=== PATIENT | male | born 1945 | race Caucasian/White ===

== ENCOUNTER 2016-07-20 17:42 | Observation (INO) | payer MEDICARE, OTHER ==
[~2016-07-20] VITALS: Ht 177.8 cm; Wt 118.1 kg
[~2016-07-20 17:42] MED LIST: LEVO.025 PO; NAPR500 PO; ONDA1TAB16 PO; PERC5TAB12 PO; RAMI10CA35 PO
[2016-07-20 17:45] VITALS: BP 134/78; PULSE 108; RESP 24; TEMP 98; O2SAT 98
[2016-07-20 18:28] VITALS: BP 123/86; O2SAT 90
[2016-07-20] MEDS ORDERED: SODIUM CHLORIDE 0.9% FLUSH 10 ML FLUSH IVF PRN (18:30)
[2016-07-20] MEDS ORDERED: LEVO150T7 PO (18:31)
[2016-07-20] MEDS ORDERED: METF500T PO (18:31)
[2016-07-20] MEDS ORDERED: FURO20TA PO (18:31)
[2016-07-20] MEDS ORDERED: XARE20TA PO (18:31)
[2016-07-20] MEDS ORDERED: POTA-163 PO (18:31)
[2016-07-20] MEDS ORDERED: AMIO200T PO (18:31)
[2016-07-20] MEDS ORDERED: AMLO5TAB2 PO (18:31)
[2016-07-20 18:35] LABS: AUTOMATED NEUTROPHIL # 10.3 TH/MM3 (1.8-7.7); BASOPHIL # 0.1 TH/MM3 (0-0.2); BASOPHIL % 0.6 % (0.0-2.0); EOSINOPHIL % 0.2 % (0.0-4.0); HEMATOCRIT 43.8 % (39.0-51.0); HEMO FLAGS DIFF FINAL; LYMPH % 19.8 % (9.0-44.0); LYMPHOCYTE # 2.9 TH/MM3 (1.0-4.8); MEAN CELL VOLUME 91.7 FL (80.0-100.0); MEAN CORPUSCULAR HEMOGLOBIN 30.2 PG (27.0-34.0); MONO % 7.5 % (0.0-8.0); NEUT % 71.9 % (16.0-70.0); PLATELET COUNT 154 TH/MM3 (150-450); RED BLOOD COUNT 4.77 MIL/MM3 (4.50-5.90); RED CELL DISTRIBUTION WIDTH 13.8 % (11.6-17.2); WHITE BLOOD COUNT 14.4 TH/MM3 (4.0-11.0)
--- NOTE | 2016-07-20 18:38 | PD ---
HPI Chief Complaint: Chest Pain Time Seen by Provider: 18:16 Travel History International Travel<30 days: No Contact w/Intl Traveler<30days: No Traveled to known affect area: No History of Present Illness HPI The patient is a 71-year-old male who presents to the emergency department for chest pain and mild shortness of breath. The patient states he has a history of atrial fibrillation and has been taking Xarelto for one month' s duration. The patient underwent cardiac ablation yesterday at [facility] by his speech language pathologist assistant, Dr. Vieyra. The patient states he was feeling well this morning, however, several hours ago developed some chest pain. The chest pain is substernal, pressure, nonradiating, associated with mild shortness of breath. The pain is worse with inspiration. He denies any nausea, vomiting, or abdominal pain. The patient states his pain started approximately 30 minutes after taken amiodarone. The patient did not call his pump attendant prior to arrival. Symptoms are moderate, there are no known alleviating or exacerbating factors. 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, ABLATION ) Social History Alcohol Use: Yes (OCCAS) Tobacco Use: No Substance Use: No Allergies-Medications (Allergen,Severity, Reaction): Coded Allergies: Bee Sting (Unverified Allergy, Mild, 07/20/16) Reported Meds & Prescriptions Reported Meds & Active Scripts Active Reported Xarelto (Rivaroxaban) 20 Mg Tab 20 Mg PO DAILY Potassium Chloride ER (Potassium Chloride) 20 Meq Tab 20 Meq PO DAILY Metformin (Metformin HCl) 500 Mg Tab 500 Mg PO DAILY With a meal Levothyroxine (Levothyroxine Sodium) 150 Mcg Tab 150 Mcg PO DAILY Furosemide 20 Mg Tab 20 Mg PO DAILY Amlodipine (Amlodipine Besylate) 5 Mg Tab 5 Mg PO DAILY Amiodarone (Amiodarone HCl) 200 Mg Tab 200 Mg PO DAILY Review of Systems Except as stated in HPI: all other systems reviewed are Neg General / Constitutional: No: Fever Cardiovascular: Positive: Chest Pain or Discomfort, No: Diaphoresis, Dyspnea on exertion Respiratory: Positive: Shortness of Breath Gastrointestinal: No: Nausea, Vomiting, Abdominal Pain Musculoskeletal: Positive: Edema Neurologic: No: Dizziness Physical Exam Narrative GENERAL: Awake, alert, 71-year-old male who appears his stated age and is in no acute respiratory distress. SKIN: Focused skin assessment warm/dry. HEAD: Atraumatic. Normocephalic. EYES: No injection or drainage. ENT: No nasal bleeding or discharge. Mucous membranes pink and moist. NECK: Trachea midline. No JVD. CARDIOVASCULAR: Regular rate and rhythm. No murmur appreciated. RESPIRATORY: No accessory muscle use. Clear to auscultation. Breath sounds equal bilaterally. GASTROINTESTINAL: Abdomen soft, no epigastric tenderness or rebound tenderness. MUSCULOSKELETAL: No obvious deformities. No clubbing. No cyanosis. No edema. NEUROLOGICAL: Awake and alert. No obvious cranial nerve deficits. Motor grossly within normal limits. Normal speech. PSYCHIATRIC: Appropriate mood and affect; insight and judgment normal. Data Data Last Documented VS Vital Signs Date Time Temp Pulse Resp B/P Pulse Ox O2 Delivery O2 Flow Rate FiO2 07/20/16 18:28 96 Nasal Cannula 2 07/20/16 18:28 123/86 07/20/16 17:45 98.0 108 24 Orders Electrocardiogram (07/20/16 ) B-Type Natriuretic Peptide (07/20/16 18:22) Ckmb (Isoenzyme) Profile (07/20/16 18:22) Complete Blood Count With Diff (07/20/16 18:22) Comprehensive Metabolic Panel (07/20/16 18:22) Magnesium (Mg) (07/20/16 18:22) Prothrombin Time / Inr (Pt) (07/20/16 18:22) Act Partial Throm Time (Ptt) (07/20/16 18:22) Troponin I (07/20/16 18:22) Lipase (07/20/16 18:22) Chest, Single Ap (07/20/16 18:22) Ecg Monitoring (07/20/16 18:22) Bilateral Bp Monitoring (07/20/16 18:22) Iv Access Insert/Monitor (07/20/16 18:22) Oximetry (07/20/16 18:22) Oxygen Administration (07/20/16 18:22) Sodium Chloride 0.9% Flush (Ns Flush) (07/20/16 18:30) Ed Poc Ultrasound (07/20/16 ) Morphine Inj (Morphine Inj) (07/20/16 19:00) Ondansetron Inj (Zofran Inj) (07/20/16 19:00) Sodium Chlorid 0.9% 500 Ml Inj (Ns 500 M (07/20/16 19:00) Admit Order (Ed Use Only) (07/20/16 19:59) Consult Cardiology (07/20/16 ) Labs Laboratory Tests Test 07/20/16 18:25 White Blood Count 14.4 TH/MM3 Red Blood Count 4.77 MIL/MM3 Hemoglobin 14.4 GM/DL Hematocrit 43.8 % Mean Corpuscular Volume 91.7 FL Mean Corpuscular Hemoglobin 30.2 PG Mean Corpuscular Hemoglobin 33.0 % Concent Red Cell Distribution Width 13.8 % Platelet Count 154 TH/MM3 Mean Platelet Volume 8.7 FL Neutrophils (%) (Auto) 71.9 % Lymphocytes (%) (Auto) 19.8 % Monocytes (%) (Auto) 7.5 % Eosinophils (%) (Auto) 0.2 % Basophils (%) (Auto) 0.6 % Neutrophils # (Auto) 10.3 TH/MM3 Lymphocytes # (Auto) 2.9 TH/MM3 Monocytes # (Auto) 1.1 TH/MM3 Eosinophils # (Auto) 0.0 TH/MM3 Basophils # (Auto) 0.1 TH/MM3 CBC Comment DIFF FINAL Differential Comment Prothrombin Time 15.0 SEC Prothromb Time International 1.3 RATIO Ratio Activated Partial 30.2 SEC Thromboplast Time Sodium Level 139 MEQ/L Potassium Level 3.8 MEQ/L Chloride Level 103 MEQ/L Carbon Dioxide Level 25.6 MEQ/L Anion Gap 10 MEQ/L Blood Urea Nitrogen 25 MG/DL Creatinine 1.59 MG/DL Estimat Glomerular Filtration 43 ML/MIN Rate Random Glucose 145 MG/DL Calcium Level 8.8 MG/DL Magnesium Level 2.2 MG/DL Total Bilirubin 0.5 MG/DL Aspartate Amino Transf 23 U/L (AST/SGOT) Alanine Aminotransferase 28 U/L (ALT/SGPT) Alkaline Phosphatase 57 U/L Total Creatine Kinase 88 U/L Troponin I 1.95 NG/ML B-Type Natriuretic Peptide 213 PG/ML Total Protein 7.1 GM/DL Albumin 3.9 GM/DL Lipase 101 U/L [facility] Medical Decision Making Medical Screen Exam Complete: Yes Emergency Medical Condition: Yes Medical Record Reviewed: Yes Interpretation(s) EKG reveals sinus tachycardia with a heart rate of 107. Q wave noted in lead 3 and aVF. Inverted T waves in lead V4, V5, V6. Differential Diagnosis Differential diagnosis includes pericardial tamponade on, pericardial effusion, post ablation pain, perforated atrium, perforated ventricle, pleural effusion, GERD, esophagitis, esophageal spasm. Narrative Course IV was established, labs are drawn and sent, and the patient was placed on cardiac telemetry monitoring and continuous pulse oximetry monitoring. EKG was ordered and interpreted. Chest x-rays obtained. Bedside ultrasound was performed, there was no obvious large pericardial effusion or evidence of pericardial tamponade on. Troponin/CPK were sent to lab, I fully expect the troponin will be elevated as he is post-ablation. This may be something to evaluate and trend if his symptoms persist. The patient was provided morphine and Zofran for his symptoms. The patient was signed out to the oncoming medical provider at 7 PM. Procedures Procedure Narrative A bedside ultrasound was performed with a cardiac probe. There was no evidence of large pericardial effusion or cardiac And not physiology. The patient tolerated the procedure without difficulty. There was no obvious complications. Condition: Stable Francis Velasco MD Jul 20, 2016 18:38
[2016-07-20 18:49] LABS: APTT (PATIENT) 30.2 SEC (24.3-30.1); INTERNATIONAL NORMALIZED RATIO 1.3 RATIO
[2016-07-20] MEDS ORDERED: SODIUM CHLORID 0.9% 500 ML INJ 500 ML IV ONE (19:00)
[2016-07-20] MEDS ORDERED: ONDANSETRON HCL 4 MG/2 ML VIAL IV PUSH ONE (19:00)
[2016-07-20] MEDS ORDERED: MORPHINE SULFATE 4 MG/ML INJ IV PUSH ONE (19:00)
[2016-07-20 19:05] LABS: ANION GAP 10 MEQ/L (5-15); AST (GOT) 23 U/L (15-37); BICARBONATE 25.6 MEQ/L (21.0-32.0); BLOOD UREA NITROGEN 25 MG/DL (7-18); CHLORIDE 103 MEQ/L (98-107); GLOMERULAR FILTRATION RATE 43 ML/MIN (>89); MAGNESIUM 2.2 MG/DL (1.5-2.5); POTASSIUM 3.8 MEQ/L (3.5-5.1); SODIUM (NA) 139 MEQ/L (136-145)
[2016-07-20 19:10] LABS: ALKALINE PHOSPHATASE 57 U/L (45-117); ALT (GPT) 28 U/L (12-78); TOTAL BILIRUBIN ADULT 0.5 MG/DL (0.2-1.0)
--- NOTE | 2016-07-20 19:14 | PD ---
Physical Exam Narrative Received sign out from previous provider to follow up labs and contact Dr. Vieyra. 71yo M who had a cardiac ablation by Dr. Vieyra yesterday presents to the ED with chest pain that started about 2.5 hours ago. States pain is midsternal and is now starting to radiating up bilateral shoulders and neck. SOB only when he tries to take deep breaths. GENERAL: 70yo M in mild distress. SKIN: Focused skin assessment warm/dry. HEAD: Atraumatic. Normocephalic. CARDIOVASCULAR: Regular rate and rhythm. No murmur appreciated. RESPIRATORY: No accessory muscle use. Clear to auscultation. Breath sounds equal bilaterally. GASTROINTESTINAL: Abdomen soft, non-tender, nondistended. Bilateral groin sites c/d/i. MUSCULOSKELETAL: No obvious deformities. No clubbing. No cyanosis. +Bilateral lower ext edema. NEUROLOGICAL: Awake and alert. No obvious cranial nerve deficits. Motor grossly within normal limits. Normal speech. PSYCHIATRIC: Appropriate mood and affect; insight and judgment normal. Labs reviewed, mild leukocytosis at 14.4. BUN/creatinine 25/1.59, no prior to compare. Troponin elevated at 1.95 and this is expected. CXR showed cardiomegaly. Right basilar infiltrate consistent wit atelectasis and/or pneumonia. Pt has some cough but no fever. He does have mild elevation in WBC count and he is well appearing, will prescribe azithromycin. Pt reevaluated at bedside after morphine, zofran, and NS IVF and states pain has improved. Discussed case with Dr. Long who is telecommunications line mechanic for Dr. Vieyra. Discussed with Dr. Fenton's CONTINUOUS IMPROVEMENT MANAGER and accepted to their service. I placed a consult for Dr. Vieyra. Data Data Last Documented VS Vital Signs Date Time Temp Pulse Resp B/P Pulse Ox O2 Delivery O2 Flow Rate FiO2 07/20/16 18:28 96 Nasal Cannula 2 07/20/16 18:28 123/86 07/20/16 17:45 98.0 108 24 Orders Electrocardiogram (07/20/16 ) B-Type Natriuretic Peptide (07/20/16 18:22) Ckmb (Isoenzyme) Profile (07/20/16 18:22) Complete Blood Count With Diff (07/20/16 18:22) Comprehensive Metabolic Panel (07/20/16 18:22) Magnesium (Mg) (07/20/16 18:22) Prothrombin Time / Inr (Pt) (07/20/16 18:22) Act Partial Throm Time (Ptt) (07/20/16 18:22) Troponin I (07/20/16 18:22) Lipase (07/20/16 18:22) Chest, Single Ap (07/20/16 18:22) Ecg Monitoring (07/20/16 18:22) Bilateral Bp Monitoring (07/20/16 18:22) Iv Access Insert/Monitor (07/20/16 18:22) Oximetry (07/20/16 18:22) Oxygen Administration (07/20/16 18:22) Sodium Chloride 0.9% Flush (Ns Flush) (07/20/16 18:30) Ed Poc Ultrasound (07/20/16 ) Morphine Inj (Morphine Inj) (07/20/16 19:00) Ondansetron Inj (Zofran Inj) (07/20/16 19:00) Sodium Chlorid 0.9% 500 Ml Inj (Ns 500 M (07/20/16 19:00) Admit Order (Ed Use Only) (07/20/16 19:59) Consult Cardiology (07/20/16 ) Labs Laboratory Tests Test 07/20/16 18:25 White Blood Count 14.4 TH/MM3 Red Blood Count 4.77 MIL/MM3 Hemoglobin 14.4 GM/DL Hematocrit 43.8 % Mean Corpuscular Volume 91.7 FL Mean Corpuscular Hemoglobin 30.2 PG Mean Corpuscular Hemoglobin 33.0 % Concent Red Cell Distribution Width 13.8 % Platelet Count 154 TH/MM3 Mean Platelet Volume 8.7 FL Neutrophils (%) (Auto) 71.9 % Lymphocytes (%) (Auto) 19.8 % Monocytes (%) (Auto) 7.5 % Eosinophils (%) (Auto) 0.2 % Basophils (%) (Auto) 0.6 % Neutrophils # (Auto) 10.3 TH/MM3 Lymphocytes # (Auto) 2.9 TH/MM3 Monocytes # (Auto) 1.1 TH/MM3 Eosinophils # (Auto) 0.0 TH/MM3 Basophils # (Auto) 0.1 TH/MM3 CBC Comment DIFF FINAL Differential Comment Prothrombin Time 15.0 SEC Prothromb Time International 1.3 RATIO Ratio Activated Partial 30.2 SEC Thromboplast Time Sodium Level 139 MEQ/L Potassium Level 3.8 MEQ/L Chloride Level 103 MEQ/L Carbon Dioxide Level 25.6 MEQ/L Anion Gap 10 MEQ/L Blood Urea Nitrogen 25 MG/DL Creatinine 1.59 MG/DL Estimat Glomerular Filtration 43 ML/MIN Rate Random Glucose 145 MG/DL Calcium Level 8.8 MG/DL Magnesium Level 2.2 MG/DL Total Bilirubin 0.5 MG/DL Aspartate Amino Transf 23 U/L (AST/SGOT) Alanine Aminotransferase 28 U/L (ALT/SGPT) Alkaline Phosphatase 57 U/L Total Creatine Kinase 88 U/L Troponin I 1.95 NG/ML B-Type Natriuretic Peptide 213 PG/ML Total Protein 7.1 GM/DL Albumin 3.9 GM/DL Lipase 101 U/L [facility] Supervised Visit with SUSANA: Yes Diagnosis Primary Impression: Chest pain Qualified Code: R07.9 - Chest pain, unspecified type Admitting Information Admitting Physician Requests: Observation Condition: Stable Jocelyn Abreu DO Jul 20, 2016 19:13
[2016-07-20 19:23] LABS: CREATINE KINASE 88 U/L (39-308)
--- NOTE | 2016-07-20 19:24 | RADRPT ---
EXAM DATE/TIME: 07/20/2016 18:51 [place] COMPARISON: No previous studies available for comparison. INDICATIONS : Chest pain and shortness of breath. MEDICAL HISTORY : Diabetes mellitus type II. SURGICAL HISTORY : Cardiac ablation. ENCOUNTER: Initial ACUITY: 1 day PAIN SCORE: 9/10 LOCATION: Chest FINDINGS: The heart is mildly enlarged. Mild pulmonary vascular congestion is likely. Right basilar atelectasis and/or infiltrate is noted. CONCLUSION: 1. Cardiomegaly. 2. Right basilar infiltrate consistent with atelectasis and/or pneumonia. Clinical correlation is rec ommended. 3. Minimal central pulmonary vascular congestion. 4. Degenerative changes throughout the thoracic spine. Tam Shaikh MD on July 20, 2016 at 19:15 Board Certified Radiologist. This report was verified electronically.
[2016-07-20] MEDS ORDERED: SODIUM CHLORIDE 0.9% FLUSH 10 ML FLUSH IV FLUSH PRN (20:15)
[2016-07-20] MEDS ORDERED: NITROGLYCERIN 0.4 MG SL 25 TABS/BTL SL PRN (20:15)
[2016-07-20] MEDS ORDERED: ACETAMINOPHEN 500 MG CPLT PO PRN (20:15)
[2016-07-20 20:46] VITALS: BP_SYST 107; BP_SYST 116; BP_DIAS 57; BP_DIAS 74; PULSE 106; PULSE 97; RESP 16; O2SAT 96; O2SAT 97
[2016-07-20] MEDS: ALUMINUM/MAGNESIUM/SIMETH 30 ML CUP PO SCH (21:09)
[2016-07-20] MEDS: AZITHROMYCIN INJ 500 MG in SODIUM CHLOR 0.9% 250 ML INJ 250 ML IV SCH (21:09)
[2016-07-20] MEDS: SODIUM CHLORIDE 0.9% FLUSH 10 ML FLUSH IV FLUSH SCH (21:10)
[2016-07-20 21:44] LABS: BLOOD, URINE NEG (NEG); COMMENT (UR) CULT NOT INDICATED; CULTURE IF INDICATED CULT NOT INDICATED; GLUCOSE,URINE NEG (NEG); HYALINE CAST, URINE 1 /lpf (RARE); KETONE, URINE NEG (NEG); NITRITE,URINE NEG (NEG); PH, URINE 5.5 (5.0-8.5); SQUAMOUS EPITHELIAL CELL URINE <1 /hpf (0-5); URINE COLOR YELLOW (YELLW/STRAW)
[2016-07-20 22:27] VITALS: BP 120/81; PULSE 107; RESP 18; TEMP 98; O2SAT 97
[2016-07-20 22:34] VITALS: PULSE 96
[2016-07-20] MEDS: LEVOTHYROXINE SODIUM 150 MCG TAB PO SCH (22:44)
[2016-07-20 23:00] VITALS: PULSE 107
[2016-07-20] MEDS: MORPHINE SULFATE 4 MG/ML INJ IM PRN ×2 (23:05→23:07)
[2016-07-21] VITALS (26 sets, daily range): BP systolic 99–112; BP diastolic 48–89; PULSE 83–110; RESP 17–20; TEMP 97.8–99.8; O2SAT 90–96
[2016-07-21] MEDS: MORPHINE SULFATE 4 MG/ML INJ IM PRN ×2 (04:08→04:10)
[2016-07-21] MEDS ORDERED: LEVOTHYROXINE SODIUM 150 MCG TAB PO SCH (06:00)
[2016-07-21 06:30] LABS: BICARBONATE 24.1 MEQ/L (21.0-32.0); POTASSIUM 4.1 MEQ/L (3.5-5.1)
[2016-07-21 06:52] LABS: AUTOMATED NEUTROPHIL # 7.3 TH/MM3 (1.8-7.7); BASOPHIL % 0.3 % (0.0-2.0); EOSINOPHIL % 0.2 % (0.0-4.0); HEMATOCRIT 38.8 % (39.0-51.0); HEMO FLAGS DIFF FINAL; LYMPH % 23.1 % (9.0-44.0); LYMPHOCYTE # 2.5 TH/MM3 (1.0-4.8); MEAN CELL VOLUME 91.4 FL (80.0-100.0); MEAN CORPUSCULAR HGB CONC 33.9 % (32.0-36.0); MONO % 9.4 % (0.0-8.0); PLATELET COUNT 148 TH/MM3 (150-450); RED BLOOD COUNT 4.25 MIL/MM3 (4.50-5.90); RED CELL DISTRIBUTION WIDTH 13.4 % (11.6-17.2); WHITE BLOOD COUNT 10.9 TH/MM3 (4.0-11.0)
[2016-07-21] MEDS: SODIUM CHLORIDE 0.9% FLUSH 10 ML FLUSH IV FLUSH SCH ×2 (10:17→21:04)
[2016-07-21] MEDS: AMIODARONE 200 MG TAB PO SCH (10:17)
[2016-07-21] MEDS: FUROSEMIDE 20 MG TAB PO SCH (10:18)
[2016-07-21] MEDS: POTASSIUM CHLORIDE 20 MEQ CONTROLLED RELEASE TAB PO SCH (10:18)
[2016-07-21] MEDS: RIVAROXABAN 20 MG TAB PO SCH (10:18)
[2016-07-21] MEDS: amLODIPine BESYLATE 5 MG TAB PO SCH (10:19)
[2016-07-21] MEDS: ALUMINUM/MAGNESIUM/SIMETH 30 ML CUP PO SCH ×4 (10:19→21:04)
--- NOTE | 2016-07-21 10:53 | HHI.HP ---
History of Present Illness Primary Care Physician Gianluca Fenton, DO Admission Diagnosis Chest pain Diagnoses: History of Present Illness pt had ablation on was released saturday went to [facility], [place] to eat a big lunch went home and had chest pain and presented to ed Review of Systems Constitutional: COMPLAINS OF: Weight loss Cardiovascular: COMPLAINS OF: Chest pain Except as stated in HPI: all other systems reviewed are Neg Past Family Social History Allergies: Coded Allergies: Bee Sting (Unverified Allergy, Mild, 07/20/16) Past Medical History obesity hptn dysrrythmia Reported Medications Current Medications Medications (Trade) Dose Ordered Sig/Fabricio Route PRN Reason Start Time Stop Time Status Last Admin Dose Admin Sodium Chloride (NS Flush) 2 ml BID IV FLUSH 07/20/16 21:00 07/21/16 10:17 Sodium Chloride (NS Flush) 2 ml UNSCH PRN IV FLUSH FLUSH AFTER USING IV ACCESS 07/20/16 20:15 Nitroglycerin (Nitrostat Sl) 0.4 mg Q5M PRN SL ANGINA 07/20/16 20:15 Acetaminophen (Tylenol) 500 mg Q4H PRN PO HEADACHE 07/20/16 20:15 Al Hydrox/Mg Hydrox/ Simethicone 30 ml 30 ml QID PO 07/20/16 21:00 07/21/16 10:19 Azithromycin/ Sodium Chloride (Zithromax Inj/ NS 250 ml Inj) 250 ml @ 250 mls/hr Q24H IV 07/20/16 21:00 07/20/16 21:09 Amiodarone HCl (Cordarone) 200 mg DAILY PO 07/21/16 09:00 07/21/16 10:17 Amlodipine Besylate (Norvasc) 5 mg DAILY PO 07/21/16 09:00 07/21/16 10:19 Furosemide (Lasix) 20 mg DAILY PO 07/21/16 09:00 07/21/16 10:18 Potassium Chloride (KCl) 20 meq DAILY PO 07/21/16 09:00 07/21/16 10:18 Rivaroxaban (Xarelto) 20 mg DAILY PO 07/21/16 09:00 07/21/16 10:18 Levothyroxine Sodium (Synthroid) 150 mcg DAILY@2100 PO 07/20/16 23:00 07/20/16 22:44 Morphine Sulfate (Morphine Inj) 2 mg Q4H PRN IM PAIN 5-10 AUGUST REPEAT X1 07/20/16 23:15 07/21/16 04:10 Active Ordered Medications Current Medications Medications (Trade) Dose Ordered Sig/Fabricio Route PRN Reason Start Time Stop Time Status Last Admin Dose Admin Sodium Chloride (NS Flush) 2 ml BID IV FLUSH 07/20/16 21:00 07/21/16 10:17 Sodium Chloride (NS Flush) 2 ml UNSCH PRN IV FLUSH FLUSH AFTER USING IV ACCESS 07/20/16 20:15 Nitroglycerin (Nitrostat Sl) 0.4 mg Q5M PRN SL ANGINA 07/20/16 20:15 Acetaminophen (Tylenol) 500 mg Q4H PRN PO HEADACHE 07/20/16 20:15 Al Hydrox/Mg Hydrox/ Simethicone 30 ml 30 ml QID PO 07/20/16 21:00 07/21/16 10:19 Azithromycin/ Sodium Chloride (Zithromax Inj/ NS 250 ml Inj) 250 ml @ 250 mls/hr Q24H IV 07/20/16 21:00 07/20/16 21:09 Amiodarone HCl (Cordarone) 200 mg DAILY PO 07/21/16 09:00 07/21/16 10:17 Amlodipine Besylate (Norvasc) 5 mg DAILY PO 07/21/16 09:00 07/21/16 10:19 Furosemide (Lasix) 20 mg DAILY PO 07/21/16 09:00 07/21/16 10:18 Potassium Chloride (KCl) 20 meq DAILY PO 07/21/16 09:00 07/21/16 10:18 Rivaroxaban (Xarelto) 20 mg DAILY PO 07/21/16 09:00 07/21/16 10:18 Levothyroxine Sodium (Synthroid) 150 mcg DAILY@2100 PO 07/20/16 23:00 07/20/16 22:44 Morphine Sulfate (Morphine Inj) 2 mg Q4H PRN IM PAIN 5-10 AUGUST REPEAT X1 07/20/16 23:15 07/21/16 04:10 Family History father with lung cancer mother with parkinsons disease Social History non smoker daily drinker Physical Exam Vital Signs Vital Signs Date Time Temp Pulse Resp B/P Pulse Ox O2 Delivery O2 Flow Rate FiO2 07/21/16 08:00 93 4/1/17 07:00 99.8 87 17 99/73 96 07/21/16 07:00 101 07/21/16 06:00 100 07/21/16 05:00 104 07/21/16 04:18 104 18 110/79 94 07/21/16 04:00 104 07/21/16 03:00 108 07/21/16 02:00 110 07/21/16 01:00 100 07/21/16 00:00 108 07/20/16 23:00 107 07/20/16 22:34 96 07/20/16 22:27 98.0 107 18 120/81 97 07/20/16 20:46 106 16 116/74 97 Nasal Cannula 07/20/16 18:28 96 Nasal Cannula 2 07/20/16 18:28 123/86 07/20/16 18:28 90 Room Air 07/20/16 17:45 98.0 108 24 134/78 98 Room Air Physical Exam GENERAL: This is a well-nourished, well-developed patient, in no apparent distress. SKIN: No rashes, ecchymoses or lesions. Cool and dry. HEAD: Atraumatic. Normocephalic. No temporal or scalp tenderness. EYES: Pupils equal round and reactive. Extraocular motions intact. No scleral icterus. No injection or drainage. ENT: Nose without bleeding, purulent drainage or septal hematoma. Throat without erythema, tonsillar hypertrophy or exudate. Uvula midline. Airway patent. NECK: Trachea midline. No JVD or lymphadenopathy. Supple, nontender, no meningeal signs. CARDIOVASCULAR: Regular rate and rhythm without murmurs, gallops, or rubs. RESPIRATORY: Clear to auscultation. Breath sounds equal bilaterally. No wheezes , rales, or rhonchi. GASTROINTESTINAL: Abdomen soft, tender in the epigastric area obese , nondistended. No hepato-splenomegaly, or palpable masses. MUSCULOSKELETAL: Extremities without clubbing, cyanosis, or edema. No joint tenderness, effusion, or edema noted. No calf tenderness. Negative Homans sign bilaterally. NEUROLOGICAL: Awake and alert. Cranial nerves II through XII intact. Motor and sensory grossly within normal limits. Five out of 5 muscle strength in all muscle groups. Normal speech. Laboratory Laboratory Tests Test 07/20/16 07/20/16 07/21/16 4/1/17 18:25 21:30 00:20 05:48 White Blood Count 14.4 10.9 Red Blood Count 4.77 4.25 Hemoglobin 14.4 13.2 Hematocrit 43.8 38.8 Mean Corpuscular Volume 91.7 91.4 Mean Corpuscular Hemoglobin 30.2 31.0 Mean Corpuscular Hemoglobin 33.0 33.9 Concent Red Cell Distribution Width 13.8 13.4 Platelet Count 154 148 Mean Platelet Volume 8.7 9.5 Neutrophils (%) (Auto) 71.9 67.0 Lymphocytes (%) (Auto) 19.8 23.1 Monocytes (%) (Auto) 7.5 9.4 Eosinophils (%) (Auto) 0.2 0.2 Basophils (%) (Auto) 0.6 0.3 Neutrophils # (Auto) 10.3 7.3 Lymphocytes # (Auto) 2.9 2.5 Monocytes # (Auto) 1.1 1.0 Eosinophils # (Auto) 0.0 0.0 Basophils # (Auto) 0.1 0.0 CBC Comment DIFF FINAL DIFF FINAL Differential Comment Prothrombin Time 15.0 Prothromb Time International 1.3 Ratio Activated Partial 30.2 Thromboplast Time Sodium Level 139 137 Potassium Level 3.8 4.1 Chloride Level 103 105 Carbon Dioxide Level 25.6 24.1 Anion Gap 10 8 Blood Urea Nitrogen 25 21 Creatinine 1.59 1.06 Estimat Glomerular Filtration 43 68 Rate Random Glucose 145 146 Calcium Level 8.8 8.3 Magnesium Level 2.2 Total Bilirubin 0.5 Aspartate Amino Transf 23 (AST/SGOT) Alanine Aminotransferase 28 (ALT/SGPT) Alkaline Phosphatase 57 Total Creatine Kinase 88 Troponin I 1.95 1.55 1.37 B-Type Natriuretic Peptide 213 Total Protein 7.1 Albumin 3.9 Lipase 101 Urine Color YELLOW Urine Turbidity CLEAR Urine pH 5.5 Urine Specific [place] 1.021 Urine Protein NEG Urine Glucose (UA) NEG Urine Ketones NEG Urine Occult Blood NEG Urine Nitrite NEG Urine Bilirubin NEG Urine Urobilinogen LESS THAN 2.0 Urine Leukocyte Esterase NEG Urine RBC 2 Urine WBC 1 Urine Squamous Epithelial <1 Cells Urine Hyaline Casts 1 Microscopic Urinalysis Comment CULT NOT INDICATED Result Diagram: 07/21/16 0548 07/21/16 0548 Imaging Last 48 hours Impressions Chest X-Ray 07/20/16 1822 Signed Impressions: Service Date/Time: Wednesday, July 20, 2016 18:51 - CONCLUSION: 1. Cardiomegaly. 2. Right basilar infiltrate consistent with atelectasis and/or pneumonia. Clinical correlation is recommended. 3. Minimal central pulmonary vascular congestion. 4. Degenerative changes throughout the thoracic spine. Tam Shaikh MD Assessment and Plan Assessment and Plan chest pain recent ablation pulmonary infiltrate will rx with zithromax ceftin and nebulizers Epigastric pain may have GUD no prior scope will add protonix and consult GI Discussed Condition With patient Discharge Planning home Gianluca Fenton DO Jul 21, 2016 10:53
--- NOTE | 2016-07-21 13:00 | MB ---
cc: OJSE SANFORD M.D. DATE OF CONSULTATION: 07/21/2016 REASON FOR CONSULTATION: Chest pain, increased troponin. HISTORY OF PRESENT ILLNESS: Mr. Benavidez is a 71-year-old gentleman with history of atrial fibrillation, recent ablation a couple of days ago, admitted due to chest pain. The patient was ambulating yesterday, had lunch. After lunch, he felt like there was some chest discomfort. He came to the emergency room. Troponin elevated, and I was consulted for further evaluation and management. The chart was reviewed. The patient was evaluated. ALLERGIES: BEE STING SOCIAL HISTORY: Negative for smoking and drinking. FAMILY HISTORY: Noncontributory to his current medical condition. MEDICATIONS: 1. Zithromax. 2. Acetaminophen. 3. Amiodarone 200 milligrams a day. 4. Norvasc 5 milligrams a day. 5. Lasix 20 milligrams a day. 6. Levoxyl. 7. Morphine. 8. Xarelto 20 milligrams a day. REVIEW OF SYSTEMS Currently refers no chest pain, no chest discomfort, no fever. PHYSICAL EXAMINATION: Alert, fully oriented. VITAL SIGNS: Blood pressure 110/71, pulse around 83, respiratory rate 18. LUNGS: Ventilated. CARDIOVASCULAR: S1-S2 regular. ABDOMEN: Soft, no masses, no bruits. EXTREMITIES: No edema. Electrocardiogram Sinus rhythm with PACs. LABORATORY DATA: Hemoglobin 13.2, white blood cell 10.9, potassium 4.1, creatinine 1.06, troponin on admission was 1.95 currently is 1.37. INR 1.3. ASSESSMENT AND RECOMMENDATIONS Mr. Benavidez is feeling well. He is in sinus rhythm with PACs. Troponin increased because the gentleman is post atrial fibrillation ablation. The troponin is coming down at this point. My recommendation is anti-inflammatory. I am going to give him colchicine 0.6 mg twice a day for 3 days. The case extensively discussed with him. This is basically inflammatory response. The gentleman can be discharged home today and follow up at my office as previously scheduled. Jose Sanford MD /GEOVANNA /12:27 PM /12:54 PM
[2016-07-21] MEDS: PANTOPRAZOLE SOD 40 MG DELAYED RELEASE TAB PO SCH (14:53)
--- NOTE | 2016-07-21 15:52 | MB ---
cc: NIKO ROB M.D., GERALD R. D.O. DATE OF CONSULTATION July 21, [address] Gianluca Fenton. REASON FOR CONSULTATION Chest discomfort, epigastric tenderness. HISTORY OF PRESENT ILLNESS Mr. Benavidez is a 71-year-old gentleman who had cardiac ablation done for atrial fibrillation a few days ago. After lunch yesterday he developed what he described as severe chest discomfort, this prompted hospital visit and admission. He says during his physical exam with Dr. Fenton here when Dr. Fenton was pressing on his epigastric area he had some tenderness and this has prompted GI consultation. Overall, he says he feels a whole lot better. His symptoms have all but dissipated. REVIEW OF SYSTEMS No chest pain at this time. No abdominal pain. No reflux. No hematemesis or hematochezia. ALLERGIES ALLERGIES TO BEESTINGS. PAST MEDICAL HISTORY Hypertension. Atrial fibrillation. Obesity. CURRENT MEDICATIONS 1. Nitroglycerin. 2. Azithromycin. 3. Amiodarone. 4. Amlodipine. 5. Lasix. 6. Xarelto. 7. Levothyroxine. FAMILY HISTORY Lung cancer. SOCIAL HISTORY No tobacco, no alcohol. PHYSICAL EXAMINATION GENERAL: Physical examination reveals a well-nourished man in no apparent distress. VITAL SIGNS: Stable. HEAD AND NECK EXAMINATION: Anicteric sclerae. CHEST: Bilateral air entry with rales. ABDOMEN: Abdomen is obese, soft. No tenderness elicited. MANAGER SURGICAL: Exam is nonfocal. LABORATORY DATA Labs reveal hemoglobin of 13.2, creatinine 1.06. Liver function tests are normal. Lipase is 101. IMPRESSION Chest discomfort, epigastric tenderness. RECOMMENDATIONS At this time he appears to be doing well. He is currently on Xarelto. I think an endoscopy is a good idea but this can be done as an outpatient at some point in the future once his Xarelto can be safely held. Protonix 40 milligrams daily for about 4 weeks is recommended. Diet as tolerated. The patient can be discharged home from GI standpoint with GI follow up in 2 weeks. This has been discussed with him. Thank you for this referral. MD SHAYNA Cortés/BURTON /2:18 PM /3:42 PM
[2016-07-21] MEDS: COLCHICINE 0.6 MG TAB PO SCH ×2 (17:16→21:04)
[2016-07-21] MEDS: AZITHROMYCIN INJ 500 MG in SODIUM CHLOR 0.9% 250 ML INJ 250 ML IV SCH (21:03)
[2016-07-21] MEDS: LEVOTHYROXINE SODIUM 150 MCG TAB PO SCH (21:04)
[2016-07-22] VITALS (12 sets, daily range): BP systolic 115–123; BP diastolic 41–76; PULSE 60–103; RESP 17–20; TEMP 98.8–99; O2SAT 96
[2016-07-22 06:57] LABS: BICARBONATE 24.3 MEQ/L (21.0-32.0)
[2016-07-22 07:11] LABS: AUTOMATED NEUTROPHIL # 6.1 TH/MM3 (1.8-7.7); BASOPHIL % 0.2 % (0.0-2.0); EOSINOPHIL # 0.1 TH/MM3 (0-0.4); EOSINOPHIL % 0.6 % (0.0-4.0); HEMATOCRIT 39.9 % (39.0-51.0); HEMO FLAGS DIFF FINAL; LYMPH % 30.7 % (9.0-44.0); LYMPHOCYTE # 3.3 TH/MM3 (1.0-4.8); MEAN CELL VOLUME 91.9 FL (80.0-100.0); MEAN CORPUSCULAR HEMOGLOBIN 31.6 PG (27.0-34.0); MEAN CORPUSCULAR HGB CONC 34.3 % (32.0-36.0); MONO % 11.3 % (0.0-8.0); NEUT % 57.2 % (16.0-70.0); PLATELET COUNT 132 TH/MM3 (150-450); RED BLOOD COUNT 4.34 MIL/MM3 (4.50-5.90); RED CELL DISTRIBUTION WIDTH 13.7 % (11.6-17.2); WHITE BLOOD COUNT 10.7 TH/MM3 (4.0-11.0)
--- NOTE | 2016-07-22 08:53 | HHI.DS ---
Discharge Summary Admission Date Jul 20, 2016 at 20:02 Admitting Diagnosis Chest pain (1) Chest pain Diagnosis: Principal Brief History pt had ablation on was released saturday went to [facility] to eat a big lunch went home and had chest pain and presented to ed CBC/BMP: 07/22/16 0557 07/22/16 0557 Significant Findings Laboratory Tests Test 07/20/16 07/21/16 07/21/16 07/22/16 18:25 00:20 05:48 05:57 White Blood Count 14.4 TH/MM3 (4.0-11.0) Neutrophils (%) (Auto) 71.9 % (16.0-70.0) Neutrophils # (Auto) 10.3 TH/MM3 (1.8-7.7) Monocytes # (Auto) 1.1 TH/MM3 1.0 TH/MM3 1.2 TH/MM3 (0-0.9) (0-0.9) (0-0.9) Prothrombin Time 15.0 SEC (9.8-11.6) Activated Partial 30.2 SEC Thromboplast Time (24.3-30.1) Blood Urea Nitrogen 25 MG/DL (7-18) 21 MG/DL (7-18) 20 MG/DL (7-18) Creatinine 1.59 MG/DL (0.60-1.30) Estimat Glomerular Filtration 43 ML/MIN (>89) 68 ML/MIN (>89) 68 ML/MIN (>89) Rate Random Glucose 145 MG/DL 146 MG/DL 146 MG/DL (74-106) (74-106) (74-106) Troponin I 1.95 NG/ML 1.55 NG/ML 1.37 NG/ML (0.02-0.05) (0.02-0.05) (0.02-0.05) B-Type Natriuretic Peptide 213 PG/ML (0-100) Red Blood Count 4.25 MIL/MM3 4.34 MIL/MM3 (4.50-5.90) (4.50-5.90) Hematocrit 38.8 % (39.0-51.0) Platelet Count 148 TH/MM3 132 TH/MM3 (150-450) (150-450) Monocytes (%) (Auto) 9.4 % (0.0-8.0) 11.3 % (0.0-8.0) Calcium Level 8.3 MG/DL 8.2 MG/DL (8.5-10.1) (8.5-10.1) Sodium Level 135 MEQ/L (136-145) Imaging Last 48 hours Impressions Chest X-Ray 07/20/16 7732 Signed Impressions: Service Date/Time: Wednesday, July 20, 2016 18:51 - CONCLUSION: 1. Cardiomegaly. 2. Right basilar infiltrate consistent with atelectasis and/or pneumonia. Clinical correlation is recommended. 3. Minimal central pulmonary vascular congestion. 4. Degenerative changes throughout the thoracic spine. Tam Shaikh MD PE at Discharge vss afebrile no further cp no abdominal discomfort no cough or sob heent wnl hr regular no murmurs skips or gallops lungs clear no wheeze or rhonchi abd soft scaphoid no tenderness guarding or rebound extremities intact no edema Hospital Course pt did well in the hospitall he was seen by cardiology they felt his cp was due to post ablation inflamation not cad and he was given colchicine and cleared to dc he was also seen by gi they felt he can be dcd home on protonix and fu with an op egd of note his blood sugars were high in the 230rsange and he will need adjustment of his diet and diabetic meds as an op I will fu with him in the offic later this week Pt Condition on Discharge: Good Discharge Disposition: Discharge Home Discharge Instructions DIET: Follow Instructions for: Diabetic Diet Activities you can perform: Regular-No Restrictions Gianluca Fenton DO Jul 22, 2016 08:52
[2016-07-22] MEDS ORDERED: metFORMIN HCL 500 MG TAB PO SCH (09:00)
[2016-07-22] MEDS: ALUMINUM/MAGNESIUM/SIMETH 30 ML CUP PO SCH (09:44)
[2016-07-22] MEDS: amLODIPine BESYLATE 5 MG TAB PO SCH (09:45)
[2016-07-22] MEDS: RIVAROXABAN 20 MG TAB PO SCH (09:45)
[2016-07-22] MEDS: PANTOPRAZOLE SOD 40 MG DELAYED RELEASE TAB PO SCH (09:45)
[2016-07-22] MEDS: COLCHICINE 0.6 MG TAB PO SCH (09:45)
[2016-07-22] MEDS: FUROSEMIDE 20 MG TAB PO SCH (09:45)
[2016-07-22] MEDS: POTASSIUM CHLORIDE 20 MEQ CONTROLLED RELEASE TAB PO SCH (09:45)
[2016-07-22] MEDS: AMIODARONE 200 MG TAB PO SCH (09:45)
[2016-07-22] MEDS: SODIUM CHLORIDE 0.9% FLUSH 10 ML FLUSH IV FLUSH SCH (09:46)
[2016-07-22] MEDS ORDERED: COLC1TAB15 PO (09:56)
--- NOTE | 2016-07-22 21:09 | EKG ---
Date Performed: 07/21/2016 Time Performed: 05:15:30 PTAGE: 71 years EKG: Sinus rhythm with PVC(s) with PAC(s) Leftward axis Inferior infarct - age undetermined Abnormal ECG PREVIOUS TRACING : 07/20/2016 17.57 DOCTOR: Raúl Vieyra Interpretating Date/Time 07/22/2016 21:08:07
--- NOTE | 2016-07-22 21:28 | EKG ---
Date Performed: 07/20/2016 Time Performed: 17:57:31 PTAGE: 71 years EKG: SINUS TACHYCARDIA WITH FIRST DEGREE AV BLOCK WITH OCCASIONAL SUPRAVENTRICULAR PREMATURE COM PLEXES ABNORMAL ECG NO PREVIOUS TRACING DOCTOR: Raúl Vieyra Interpretating Date/Time 07/22/2016 21:24:34
== END 2016-07-22 10:23 | disposition home or self-care (01) ==
LOC: NEPE 17:42 → NEDA 20:02 → UNDOADMOB 20:02 → NEDA 22:09 → HCIS 22:09 → UNDODISOB 07-22 10:23
PROVIDERS: ADMIT Family Medicine; ATTEND Family Medicine
DX: R07.89 Other chest pain (principal); R91.8 Other nonspecific abnormal finding of lung field; R10.816 Epigastric abdominal tenderness; I48.91 Unspecified atrial fibrillation; E66.9 Obesity, unspecified; E11.9 Type 2 diabetes mellitus without complications; I10 Essential (primary) hypertension; E03.9 Hypothyroidism, unspecified; Z91.030 Bee allergy status; Z79.84 Long term (current) use of oral hypoglycemic drugs; Z79.01 Long term (current) use of anticoagulants; Z68.37 Body mass index [BMI] 37.0-37.9, adult
CPT/HCPCS: 71010; 80048; 80053; 81001; 82550; 83690; 83735; 83880; 84484; 85025; 85610; 85730; 93005; 96361; 96374; 96375; 99285; G0378; J0456; J2270; J2405; J7040; J7050

== ENCOUNTER 2016-12-16 12:05 | Emergency (ER) | payer MEDICARE, OTHER ==
[~2016-12-16] VITALS: Ht 177.8 cm; Wt 109.0 kg
[~2016-12-16 12:05] MED LIST changes: +AMIO200T PO; +AMLO5TAB2 PO; +COLC1TAB15 PO; +FURO20TA PO; -LEVO.025 PO; +LEVO150T7 PO; +METF500T PO; -NAPR500 PO; -ONDA1TAB16 PO; -PERC5TAB12 PO; +POTA-163 PO; -RAMI10CA35 PO; +XARE20TA PO
[2016-12-16 12:07] VITALS: BP 152/92; PULSE 112; RESP 20; TEMP 97.8; O2SAT 96
[2016-12-16] MEDS ORDERED: [UNRECOGNIZED DRUG - REMARK] (12:21)
[2016-12-16] MEDS ORDERED: LIDOCAINE HCL 1% 50 ML VIAL INFIL ONE (12:30)
[2016-12-16] MEDS ORDERED: BUPIVACAINE HCL PF 0.5% 10 ML VIAL INFIL ONE (12:30)
--- NOTE | 2016-12-16 12:33 | PD ---
HPI Chief Complaint: Laceration/Skin Injury Time Seen by Provider: 12:27 Travel History International Travel<30 days: No Contact w/Intl Traveler<30days: No Traveled to known affect area: No History of Present Illness HPI 71-year-old male presents to the emergency department for evaluation of laceration to his left thumb that occurred approximately 20 minutes prior to arrival. Patient states he was using the table saw when he was not paying attention and cut his left thumb. Patient states his tetanus immunization was one year ago. He reports history of tachycardia, atrial fibrillation. Patient denies any other injury at this time. Patient is right-handed. 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, ABLATION ) Social History Alcohol Use: Yes (OCCAS) Tobacco Use: No Substance Use: No Allergies-Medications (Allergen,Severity, Reaction): Coded Allergies: bee venom protein (honey bee) (Unverified Allergy, Mild, 12/16/16) Reported Meds & Prescriptions Reported Meds & Active Scripts Active Keflex (Cephalexin) 500 Mg Cap 500 Mg PO Q8H 7 Days Reported [unk allergy med] Xarelto (Rivaroxaban) 20 Mg Tab 20 Mg PO DAILY Metformin (Metformin HCl) 500 Mg Tab 500 Mg PO DAILY With a meal Levothyroxine (Levothyroxine Sodium) 150 Mcg Tab 150 Mcg PO DAILY Amlodipine (Amlodipine Besylate) 5 Mg Tab 5 Mg PO DAILY Amiodarone (Amiodarone HCl) 200 Mg Tab 200 Mg PO DAILY Review of Systems Except as stated in HPI: all other systems reviewed are Neg Physical Exam Narrative GENERAL: Well-nourished, well-developed male patient, afebrile. SKIN: Focused skin assessment warm/dry. Patient has [-] cm laceration to the volar surface of the left distal thumb. Bleeding is controlled HEAD: Normocephalic. Atraumatic. EYES: No scleral icterus. No injection or drainage. NECK: Supple, trachea midline. No JVD or lymphadenopathy. CARDIOVASCULAR: Regular rate and rhythm without murmurs, gallops, or rubs. RESPIRATORY: Breath sounds equal bilaterally. No accessory muscle use. Lungs sounds are clear to auscultation. GASTROINTESTINAL: Abdomen soft, non-tender, nondistended. MUSCULOSKELETAL: No cyanosis, or edema. Patient has full flexion-extension of the DIP joint of the left thumb. BACK: Nontender without obvious deformity. No CVA tenderness. Data Data Last Documented VS Vital Signs Date Time Temp Pulse Resp B/P (MAP) Pulse Ox O2 Delivery O2 Flow Rate FiO2 12/16/16 12:07 97.8 112 20 152/92 (112) 96 Room Air Orders Orders Finger ([id number]) (12/16/16 ) Bupivacaine Pf 0.5% Inj (Marcaine Pf 0.5 (12/16/16 12:30) Lidocaine 1% Inj (50 Ml) (Xylocaine 1% I (12/16/16 12:30) MDM Medical Decision Making Medical Screen Exam Complete: Yes Emergency Medical Condition: Yes Medical Record Reviewed: Yes Interpretation(s) Last Impressions Finger X-Ray 12/16/16 0000 Signed Impressions: Service Date/Time: Friday, December 16, 2016 12:54 - CONCLUSION: Soft tissue disruption involving the first digit at the distal phalanx without evidence of osseous injury. Katiana Munoz MD Differential Diagnosis Laceration versus open fracture versus abrasion Narrative Course 71-year-old male presents to the emergency department for evaluation of laceration to the left, the volar surface to the distal aspect of the thumb. His tetanus immunization is up-to-date. Patient is verbal consent for laceration repair. X-ray left thumb is ordered and pending. X-ray of the left thumb shows shows no bony injury. Laceration is repaired. Patient will be discharged prescription for Keflex. He is instructed on proper wound care. He is to return here for any worsening symptoms. He verbalizes agreement and understanding. The patient was discharged in stable condition with instructions, including return instructions and follow up instructions. Procedures Procedure Narrative LACERATION LOCATION: Left thumb volar surface LENGTH: 5 cm U-shaped laceration with loss of skin NUMBER OF STITCHES/AWILDA: 11 simple interrupted sutures, 2 vertical mattress sutures REPAIR: The area of the laceration was prepped with Betadine and sterilely draped. A digital block was completed with 1% lidocaine and 0.5% Marcaine. The wound was copiously irrigated and explored without evidence of foreign body, tendon injury or neurovascular injury. The wound was closed using 4-0 Prolene this was a single layer repair. A sterile dressing was applied. The patient was advised to keep the dressing clean and dry. Patient tolerated the procedure well. Diagnosis Primary Impression: Finger laceration Qualified Codes: S61.012A - Laceration without foreign body of left thumb without damage to nail, initial encounter Referrals: Primary Care Physician 1 week Patient Instructions: Care For Your Stitches (ED), Finger Laceration (ED), General Instructions Additional Instructions: Clean twice daily with soap and water and apply [id number] antibiotic ointment. Keep the current dressing on for 24 hours and start wound care. Take antibiotic as directed until gone. Keep clean and dry. No swimming or hot tubs until laceration is healed. Suture removal in 7 days. You may follow up with your primary care physician or return to the emergency department for this. Return to the emergency department for any acute worsening of symptoms. Med/Other Pt SpecificInfo: Prescription(s) given Scripts Cephalexin (Keflex) 500 Mg Cap 500 MG PO Q8H for Infection for 7 Days, #30 CAP 0 Refills Prov: Litzy Landis 12/16/16 Disposition: 01 DISCHARGE HOME Condition: Stable Litzy Landis Dec 16, 2016 12:33
--- NOTE | 2016-12-16 13:06 | PD ---
Data Data Last Documented VS Vital Signs Date Time Temp Pulse Resp B/P (MAP) Pulse Ox O2 Delivery O2 Flow Rate FiO2 12/16/16 12:07 97.8 112 20 152/92 (112) 96 Room Air Orders Orders Finger ([id number]) (12/16/16 ) Bupivacaine Pf 0.5% Inj (Marcaine Pf 0.5 (12/16/16 12:30) Lidocaine 1% Inj (50 Ml) (Xylocaine 1% I (12/16/16 12:30) MDM Supervised Visit with SUSANA: Yes Narrative Course The history, exam, and medical decision-making in the associated mid-level provider note were completed with my assistance. I reviewed and agree with the findings presented. I attest that I had a [id number] encounter with the patient on the same day, and personally performed and documented my assessment and findings in the medical record. *My assessment and Findings: This 71-year-old man who cut his thumb on a table saw. We'll check an x-ray measures no bony injury. Washout and repair. Is up-to-date on his tetanus. Trev Monge MD Dec 16, 2016 13:06
--- NOTE | 2016-12-16 13:15 | RADRPT ---
EXAM DATE/TIME: 12/16/2016 12:54 [facility] COMPARISON: No previous studies available for comparison. INDICATIONS : Laceration left thumb, cut with table saw. MEDICAL HISTORY : Diabetes mellitus type II. SURGICAL HISTORY : Cardiac ablation. ENCOUNTER: Initial ACUITY: 1 day PAIN SCORE: 8/10 LOCATION: Left Thumb FINDINGS: Examination of the first digit of the left hand demonstrates no evidence of fracture or dislocation. There is soft tissue disruption overlying the volar aspect of the distal phalanx. No radiopaque fore ign bodies are seen. CONCLUSION: Soft tissue disruption involving the first digit at the distal phalanx without evidence of osseous in jury. Katiana Munoz MD on December 16, 2016 at 13:12 Board Certified Radiologist. This report was verified electronically.
[2016-12-16] MEDS ORDERED: CEPH-460 PO (14:22)
== END 2016-12-16 14:49 | disposition home or self-care (01) ==
LOC: NEPD 12:05
DX: S61.012A Laceration without foreign body of left thumb without damage to nail, initial encounter (principal); I48.91 Unspecified atrial fibrillation; M19.90 Unspecified osteoarthritis, unspecified site; E11.9 Type 2 diabetes mellitus without complications; I10 Essential (primary) hypertension; E03.9 Hypothyroidism, unspecified; W31.2XXA Contact with powered woodworking and forming machines, initial encounter; Z87.442 Personal history of urinary calculi; Z79.899 Other long term (current) drug therapy
CPT/HCPCS: 12002; 73140